=== PATIENT | female | born 1975 | race Caucasian/White ===

== ENCOUNTER 2016-10-11 13:33 | Outpatient (CLI) | payer MEDICARE ==
--- NOTE | 2016-10-11 14:39 | RAD ---
THREE VIEWS OF THE SINUSES: Comparison: None. History: Injury to the nose two weeks ago. FINDINGS: Multiple views of the sinuses shows no evidence of displaced facial fracture. No significant opacifi cation of the paranasal sinuses is seen. IMPRESSION: No evidence of sinus opacification or facial fracture. POS: [facility]
== END 2016-10-11 13:34 | disposition home or self-care (01) ==
LOC: MADRAD 13:33
PROVIDERS: ATTEND Family Medicine
DX: S09.92XA Unspecified injury of nose, initial encounter (principal)
CPT/HCPCS: 70220

== ENCOUNTER 2016-10-31 14:47 | Outpatient (CLI) | payer MEDICARE ==
[2016-10-31 15:23] LABS: ALT (SGPT) 17 U/L (8-55); AST (SGOT) 14 U/L (5-34); Albumin 4.3 g/dL (3.5-5.0); Alkaline Phosphatase 54 U/L (40-150); Anion Gap 13 mmol/L (10-20); BUN (Urea Nitrogen) 17 mg/dL (7.0-18.7); Bilirubin, Total 0.4 mg/dL (0.2-1.2); Calc. Creatinine Clearance 0 mL/min (70-130); Calcium 8.8 mg/dL (7.8-10.44); Carbon Dioxide 22 mmol/L (22-29); Cardiac Risk 3.1 (Less than 4.5); Chloride 107 mmol/L (98-107); Cholesterol 250 mg/dl (< 200 Desired); Estimated GFR-MDRD 42; Globulin 2.6 g/dL (2.4-3.5); Glucose 114 mg/dL (70-105); HDL Cholesterol 80 mg/dL (>60 Neg Risk); LDL Cholesterol, Calculated 144 mg/dL; Protein, Total 6.9 g/dL (6.0-8.3); Sodium 138 mmol/L (136-145); Triglycerides 132 mg/dL (Less than 150)
[2016-10-31 16:11] LABS: #Basophils 0.1 thou/uL (0.0-0.2); #Eosinphils 0.5 thou/uL (0.0-0.7); #Lymphocytes 3.5 thou/uL (1.20-3.40); #Monocytes 0.8 thou/uL (0.11-0.59); #Neutrophils 5.4 thou/uL (1.40-6.50); %Basophils 0.9 % (0.0-1.0); %Eosinophils 4.4 % (0.0-10.0); %Lymphocytes 34.1 % (21.0-51.0); %Neutrophils 52.6 % (42.0-75.0); Hemoglobin 11.7 g/dL (12.0-16.0); Mean Corpuscular Hemoglobin 28.9 pg (27.0-31.0); Mean Corpuscular Volume 90.3 fl (81.0-99.0); Mean Platelet Volume 6.5 fL (7.4-10.4); Platelet Count 330 thou/uL (130-400); RBC Distribution Width 13.4 % (11.5-14.5); Red Blood Cell (RBC) Count 4.04 mill/uL (4.20-5.40); White Blood Cell (WBC) Count 10.2 thou/uL (4.8-10.8)
== END 2016-10-31 14:48 | disposition home or self-care (01) ==
LOC: MADLABBHPM 14:47
PROVIDERS: ATTEND Family Medicine
DX: E03.9 Hypothyroidism, unspecified (principal); E78.2 Mixed hyperlipidemia
CPT/HCPCS: 36415; 80053; 80061; 84443; 85025; 87077; 87086; 87186

== ENCOUNTER 2016-11-16 12:11 | Outpatient (CLI) | payer MEDICARE ==
[2016-11-19 20:11] LABS: Chlamydia by PCR Not Detected (NotDetected); GC by PCR Not Detected (NotDetected)
== END 2016-11-16 12:12 | disposition home or self-care (01) ==
LOC: MADLABSP 12:11
PROVIDERS: ATTEND Family Medicine
DX: N89.8 Other specified noninflammatory disorders of vagina (principal)
CPT/HCPCS: 36415; 87480; 87491; 87510; 87591; 87660

== ENCOUNTER 2016-12-22 08:44 | Outpatient (CLI) | payer MEDICARE ==
--- NOTE | 2016-12-22 11:35 | RAD ---
THORACIC SPINE THREE VIEWS: HISTORY: Left-sided back pain, acute. COMPARISON: None. FINDINGS: No acute fracture or malalignment. Vertebral body height and disk spaces are maintained. IMPRESSION: No acute fracture or malalignment of the thoracic spine. POS: [facility]
--- NOTE | 2016-12-22 11:42 | RAD ---
LUMBAR SPINE THREE VIEW: HISTORY: Acute left-sided back pain. COMPARISON: None. FINDINGS: No acute fracture or malalignment. Vertebral body heights and disk spaces are maintained. The SI joints are unremarkable. IMPRESSION: No acute abnormality of the lumbar spine. POS: [facility]
== END 2016-12-22 08:45 | disposition home or self-care (01) ==
LOC: MADRAD 08:44
PROVIDERS: ATTEND Family Medicine
DX: M54.6 Pain in thoracic spine (principal)
CPT/HCPCS: 72072; 72100

== ENCOUNTER 2017-05-10 09:21 | Outpatient (CLI) | payer MEDICARE | END 2017-05-10 09:22 | disposition home or self-care (01) | LOC: MADLABBHPM 09:21 | PROVIDERS: ATTEND Family Medicine | DX: R30.0 Dysuria (principal) | CPT/HCPCS: 36415; 87077; 87086; 87186 ==

== ENCOUNTER 2017-08-06 15:32 | Outpatient (CLI) | payer MEDICARE | END 2017-08-06 15:33 | disposition home or self-care (01) | LOC: MADLABBHPM 15:32 | PROVIDERS: ATTEND Family Medicine | DX: N30.00 Acute cystitis without hematuria (principal) | CPT/HCPCS: 87086 ==